=== PATIENT | female | born 1985 | race Caucasian/White ===

== ENCOUNTER → 2018-08-16 | Outpatient (CLI) | payer OTHER ==
[2018-08-16 10:32] LABS: HCT 35.4 % (34.0-46.0); HGB 11.3 gm/dL (11.4-16.0); Hypochromasia Moderate; MCH 26.2 pg (25.0-35.0); MCHC 31.9 g/dL (31.0-37.0); MCV 82.3 fL (80.0-100.0); Mean Platelet Volume 6.5; Platelet Count 371 k/uL (150-450); RDW 13.5 % (11.5-15.5); WBC 5.3 k/uL (3.8-10.6)
[2018-08-16 10:54] LABS: T4, Free (Free Thyroxine) 1.15 ng/dL (0.78-2.19)
--- NOTE | 2018-08-16 11:04 | US ---
EXAMINATION TYPE: US pelvis complete transvag DATE OF EXAM: 08/16/2018 COMPARISON: NONE CLINICAL HISTORY: N92.0 MENORRHAGIA WITH REG CYCLES. TECHNIQUE: . Transabdominal sonographic images of the pelvis were acquired. Transvaginal sonographi c images were medically necessary to better assess the following anatomy: cervix and ovaries Date of LMP: 08/10/2018 EXAM MEASUREMENTS: Uterus: 8.3 x 4.5 x 5.1 cm Endometrial Stripe: 0.2 cm Right Ovary: 1.1 x 1.9 x 1.6 cm Left Ovary: 1.2 x 1.2 x 1.3 cm 1. Uterus: cysts lower uterus, nabothian 1.3 x 1.3 x 1.0 cm, 0.4 x 0.4 x 0.3 cm, 0.8 x 0.6 x0.8 cm and there is a focal area of shadowing, possibly calcification mid uterus 0.2 x0.2 x 0.1 cm 2. Endometrium: 0.3 x0.9 x 0.2 cm fluid area upper uterine area 3. Right Ovary: wnl 4. Left Ovary: Obscured by overlying bowel gas 5. Bilateral Adnexa: wnl 6. Posterior cul-de-sac: wnl The uterus appears bulky. Echotexture is heterogeneous. IMPRESSION: There may be fibroid uterus, small amount of fluid present along the endometrium, nabothi an cysts and possible small calcification
== END | disposition home or self-care (01) ==
LOC: RADUSWWP 09:33 → MERGE 09:33
PROVIDERS: ATTEND Obstetrics & Gynecology
DX: N92.0 Excessive and frequent menstruation with regular cycle (principal); N93.8 Other specified abnormal uterine and vaginal bleeding; Z13.29 Encounter for screening for other suspected endocrine disorder
CPT/HCPCS: 36415; 76830; 76856; 82670; 83001; 83002; 84146; 84439; 84443; 84479; 85027

== ENCOUNTER → 2019-04-27 | Outpatient (CLI) | payer OTHER ==
--- NOTE | 2019-04-27 13:50 | XR ---
EXAMINATION TYPE: XR knee limited LT DATE OF EXAM: 04/27/2019 COMPARISON: None HISTORY: M 25.562 TECHNIQUE: 2 view left knee FINDINGS: Joint spaces are preserved. No joint effusion is evident. Soft tissues are normal. No acute fracture or dislocation is evident. IMPRESSION: 1. Normal 2 view left knee
== END | disposition home or self-care (01) ==
LOC: RADXRMAIN 13:12
PROVIDERS: ATTEND Internal Medicine
DX: M25.562 Pain in left knee (principal)

== ENCOUNTER → 2019-11-05 | Outpatient (CLI) | payer OTHER | END | disposition home or self-care (01) | LOC: LABWHC1 08:26 | PROVIDERS: ATTEND Obstetrics & Gynecology | DX: N92.6 Irregular menstruation, unspecified (principal) | CPT/HCPCS: 36415; 84702 ==